=== PATIENT | female | born 1945 | race Caucasian/White ===

== ENCOUNTER 2021-08-31 15:46 | Emergency (ER) | payer MEDICARE, BC, SELFPAY ==
[2021-08-31 15:48] VITALS: BP 169/89; PULSE 53; RESP 20; O2SAT 99; BMI 28.3
--- NOTE | 2021-08-31 15:49 | ECG_ITS ---
APPROVED REPORT Exam: Resting ECG HR:58 bpm ECG Measurements Heart Rate 58 AXES ID 142 P 33 QRSd 99 QRS -2 QT 417 T 73 QTc 415 Conclusion SINUS BRADYCARDIA WITH SINUS ARRHYTHMIA NONSPECIFIC ST & T-WAVE ABNORMALITY BORDERLINE ECG UNCONFIRMED REPORT Electronically signed by : Rickey Hairston MD 09/01/2021 17:57:43
--- NOTE | 2021-08-31 15:52 | HMH.EDGENADL ---
ED Disposition Clinical Impression: Chest discomfort, Uncontrolled hypertension Heat stress Qualifiers: Encounter type: initial encounter Qualified Code(s): T67.8XXA - Other effects of heat and light, initial encounter Disposition: Left Against Medical Advice Condition on Discharge: Good Instructions: DI for Heat Exhaustion and Heat Stroke, Essential Hypertension, DI for Angina, DI for Chest Pain, Heart Attack, DI for Heart Attack Additional Instructions: follow up cardiology tomorrow morning here Prescriptions: Nitroglycerin [Nitrostat 0.4mg SL Tablet] 0.4 mg SL Q5MINP PRN 1 Days #3 tab PRN Reason: Chest Pain Transmission Status: Received by [id number] Referrals: Provider,MD Francois [Referring] - Brian Costa MD [Staff Physician] - - Critical Care Critical Care Time: No Attestation: On , the high probability of a clinically significant, sudden or life threatening deterioration of the following system(s) required my full and direct attention, intervention and personal management. The time I documented below is in addition to time spent performing reported procedures but includes the following listed in this critical care notation. Medical Decision Making - Medical Records Medical records reviewed: Yes: I reviewed the patient's medical records. - Kian Inquiry Pt receiving controlled substance: No Vital Signs: 08/31/21 15:48 Pulse Rate [Brachial] 53 L Respiratory Rate 20 Blood Pressure [Right Arm] 169/89 H Blood Pressure Mean [Right Arm] 115 Blood Pressure Source [Right Arm] Automatic Cuff Blood Pressure Position [Right Arm] Sitting 02 Sat by Pulse Oximetry 99 Oxygen Delivery Method Room Air - Lab Data Lab Results 08/31/21 16:00: WBC 8.6, RBC 5.48 H, Hgb 15.1, Hct 48.9 H, MCV 89.1, MCH 27.5, MCHC 30.8 L, RDW 13.7, Plt Count 238, MPV 10.6 H, Neut % (Auto) 64.4, Lymph % (Auto) 24.7, [place] % (Auto) 5.2, Eos % (Auto) 3.8, Baso % (Auto) 1.9, Neut # (Auto) 5.5, Lymph # (Auto) 2.1, [place] # (Auto) 0.5, Eos # (Auto) 0.3, Baso # (Auto) 0.2 08/31/21 16:00: Sodium 136, Potassium 3.4 L, Chloride 103, Carbon Dioxide 25, Anion Gap 11.4, BUN 11, Creatinine 1.20 H, Estimated Creat Clear 45, Estimated GFR 44 L, Est GFR ( Amer) 53 L, Glucose 180 H, Calcium 8.9, Total Bilirubin 0.6, AST 34, ALT 17, Alkaline Phosphatase 100, Troponin I < 0.01, Total Protein 8.0, Albumin 3.9, Globulin 4.1 H, Albumin/Globulin Ratio 1.0 L 08/31/21 17:57: Troponin I 0.95 H Result diagrams: 08/31/21 16:00 08/31/21 16:00 Orders (Tests/Meds): ED MEDICATIONS Discontinued Medications Generic Name Dose Route Start Last Admin Trade Name Alondra PRN Reason Stop Dose Admin Aspirin 324 mg 08/31/21 15:56 08/31/21 16:23 Aspirin 81mg Chewable Tablet PO 08/31/21 15:57 324 mg ONCE ONE Administration Sodium Chloride 1,000 mls @ 999 mls/hr 08/31/21 16:00 08/31/21 16:23 Sod Chlor 0.9% 1000ml Bag IV 08/31/21 17:00 999 mls/hr .Q1H1M ROCKY Administration Nitroglycerin 1 gm 08/31/21 16:49 08/31/21 16:53 Nitroglycerin 1 Gm Ointment TD 08/31/21 16:50 1 gm ONCE ONE Administration Ondansetron HCl 4 mg 08/31/21 15:56 08/31/21 16:23 Ondansetron 4mg/2ml Vial IV 08/31/21 15:57 4 mg ONCE ONE Administration ORDERS Category Date Time Status Troponin I Q3H Lab 08/31/21 22:00 Ordered - ECG Data Tracing #1 I reviewed this ECG and interpreted as documented below: ekg by me sinus 58, qrs narrow, no st elev - Physician Consults Physician Consulted: dr costa Comment/Response: advised admit of course, pt refused, meds and f/u tomorrow if pt refuses admit, pt advised of consult - Reevaluation(s) Time: 18:00 (reeval,vss, appears well, advised to be admitted for poss acs and risk factors, refused says she is going home, family at bedside says she is [place], agreed to f/u cardiology and return for worse, r/b/a explained) Time: 18:47 (reeval, vss, appears well, cp free, discus
--- NOTE | 2021-08-31 15:56 | XR_ITS ---
FINAL REPORT CLINICAL HISTORY: cp FINDINGS: The heart is mildly enlarged. The mediastinum is normal. There are chronic changes at the lung bases. There is no focal infiltrate or edema. There are no pleural effusions. There is no pneumothorax. There is no osseous abnormality. IMPRESSION: No acute cardiopulmonary process Reviewed, Interpreted and Dictated by Judson Metcalf MD Transcribed by Reuben Chinchilla Authenticated and [facility]
[2021-08-31 15:57] VITALS: BMI 28.3
[2021-08-31 16:23] LABS: Basophils # 0.2 K/mm3 (0-0.2); Basophils % 1.9 % (0.1-2.0); Chloride 103 mmol/L (98-107); Eosinophils # 0.3 K/mm3 (0.0-0.4); Eosinophils % 3.8 % (0.1-12.0); Hematocrit 48.9 % (37.0-47.0); Hemoglobin 15.1 g/dL (12.2-16.2); Lymphocytes # 2.1 K/mm3 (0.7-4.5); Lymphocytes % 24.7 % (10-50); Mean Corpuscular HGB Conc 30.8 g/dL (31.8-35.4); Mean Corpuscular Hemoglobin 27.5 pg (27.0-31.2); Mean Corpuscular Volume 89.1 fl (81-99); Mean Platelet Volume 10.6 fl (7.4-10.4); Monocytes # 0.5 K/mm3 (0.1-1.0); Monocytes % 5.2 % (1.7-9.3); Neutrophils # 5.5 K/mm3 (1.8-7.8); Neutrophils % 64.4 % (37.0-80.0); Platelet Count 238 K/mm3 (142-424); Red Blood Count 5.48 M/mm3 (4.20-5.40); Red Cell Distribution Width 13.7 % (11.5-17.5); White Blood Count 8.6 K/mm3 (4.8-10.8)
[2021-08-31 16:24] LABS: Potassium 3.4 mmoL/L (3.5-5.1); Sodium 136 mmol/L (136-145)
[2021-08-31 16:26] LABS: Alanine Aminotransferase 17 U/L (12-78); Alkaline Phosphatase 100 U/L (38-126); Aspartate Amino Transferase 34 U/L (14-36); Bilirubin,Total 0.6 mg/dl (0.2-1.3); Blood Urea Nitrogen 11 mg/dl (7-17); Creatinine Clearance Estimated 45 mL/min (50-200); Estimated Glomerular Filt Rate 44 ml/min (>60); GFR (African American) 53 ML/MIN (>60)
[2021-08-31 16:27] LABS: Albumin Level 3.9 g/dl (3.5-5.0); Anion Gap 11.4 mEq/L (5-15); Calcium 8.9 mg/dl (8.4-10.2); Carbon Dioxide 25 mmol/L (22.0-30.0); Globulin 4.1 g/dL (1.3-3.2); Glucose 180 mg/dl (74-100)
[2021-08-31 16:41] LABS: Troponin I < 0.01 ng/ml (0.00-0.034)
--- NOTE | 2021-08-31 16:47 | PC.NURSE ---
ED MD AT BEDSIDE TO UPDATE PT AND FAMILY
--- NOTE | 2021-08-31 16:51 | PC.NURSE ---
ED MD SPEAKING WITH PT AND FAMILY ABOUT ADMISSION
--- NOTE | 2021-08-31 17:21 | PC.NURSE ---
1717 WARM BLANKET PROVIDED, PT WITHOUT FURTHER NEEDS AT THIS TIME. FAMILY AT BEDSIDE
--- NOTE | 2021-08-31 18:05 | PC.NURSE ---
MD AT BEDSIDE, UPDATING FAMILY AND PT ON POC
[2021-08-31 18:34] LABS: Troponin I 0.95 ng/ml (0.00-0.034)
--- NOTE | 2021-08-31 18:36 | PC.NURSE ---
ED MD SPEAKING WITH PT AND FAMILY ABOUT POC
--- NOTE | 2021-08-31 18:37 | PC.NURSE ---
Called to check on Troponin on pt. Rober stated that [facility] was calling to report. Viky Jaffe 2nd Troponin was 0.95, stated back and repeated.
--- NOTE | 2021-08-31 18:42 | PC.NURSE ---
Dr Vargas paged, pt does not want to stay, Dr Medina talking to Dr Vargas about patient.
--- NOTE | 2021-08-31 19:04 | PC.NURSE ---
Pt signed AMA and I again asked pt to stay and get checked out by cardiology, she refused and stated that she would see cardiology in [place] tomorrow.
[2021-08-31 19:13] VITALS: BP 169/89; PULSE 53; RESP 20; TEMP -17.7; TEMP 0; O2SAT 99
== END 2021-08-31 19:15 | disposition left against medical advice (07) ==
PROVIDERS: Emergency Provider Emergency Medicine; PCP Family Medicine
DX: R07.9 Chest pain, unspecified (principal); T67.8XXA Other effects of heat and light, initial encounter; I10 Essential (primary) hypertension; R11.0 Nausea; Z86.73 Personal history of transient ischemic attack (TIA), and cerebral infarction without residual deficits; V29.9XXA Motorcycle rider (driver) (passenger) injured in unspecified traffic accident, initial encounter
CPT/HCPCS: 71045; 80053; 84484; 85025; 93005; 96361; 96374; 99285; J2405